=== PATIENT | female | born 1965 | race Caucasian/White ===

== ENCOUNTER 2016-11-07 14:35 | Emergency (ER) | payer BC ==
--- NOTE | 2016-11-07 16:22 | C.PDOC ---
History Of Present Illness 51 y/o female presents to the ED with complaints of pain to left shoulder x2 months. Pt reports taking OTC pain medications without relief. Pt saw orthopedist in [place]. Pt evaluated, sent for XR and referred to physical therapy. Pt states physical therapist told her since she has left axilla tenderness she may have inflammation and needs to be medically cleared in order to begin physical therapy. Pt insistent on having US performed. Denies fever, chills, weakness, numbness or any other complaints. Time Seen by Provider: 11/07/16 14:45 Chief Complaint (Nursing): Upper Extremity Problem/Injury History Per: Patient History/Exam Limitations: no limitations Onset/Duration Of Symptoms: Days Current Symptoms Are (Timing): Still Present Quality: "Pain" Severity: Mild Recent travel outside of the [place]: No Past Medical History Reviewed: Historical Data, Nursing Documentation, Vital Signs Vital Signs: Last Vital Signs Temp 98.2 F 11/07/16 18:05 Pulse 82 11/07/16 18:05 Resp 18 11/07/16 18:05 BP 120/72 11/07/16 18:05 Pulse Ox 98 11/07/16 18:05 - Medical History PMH: Gastritis, Chronic Pain - [facility] Procedures INFLUENZA VACCINATION (03/29/14) Family History: States: Unknown Family Hx - Social History Hx Tobacco Use: No Hx Alcohol Use: Yes Hx Substance Use: No - Immunization History Hx Tetanus Toxoid Vaccination: No Hx Influenza Vaccination: No Hx Pneumococcal Vaccination: No Review Of Systems Constitutional: Negative for: Fever, Chills Musculoskeletal: Positive for: Shoulder Pain (left shoulder pain) Neurological: Negative for: Weakness, Numbness Physical Exam - Physical Exam Appears: Non-toxic, No Acute Distress Skin: Warm, Dry, No Rash Head: Atraumatic, Normacephalic Cardiovascular: Rhythm Regular Respiratory: Normal Breath Sounds, No Rales, No Rhonchi, No Wheezing Extremity: Normal ROM, Tenderness (diffuse left shoulder and axilla tenderness) , No Deformity, Other (No erythema or swelling to left shoulder/axilla) Neurological/Psych: Oriented x3, Normal Speech, Normal Cognition, Normal Motor, Normal Sensation ED Course And Treatment O2 Sat by Pulse Oximetry: 99 (room air) Pulse Ox Interpretation: Normal - CT Scan/US axilla US Other Rad Studies (CT/US): Read By Radiologist, Radiology Report Reviewed CT/US Interpretation: Accession No. : [id number]. Patient Name / ID : PARVEZ CASTRO / [id number]. Exam Date : 11/07/2016 15:57:20 ( Approved ) . Study Comment : Sex / Age : F / 51Y. Creator : Bonnie Dickens MD. Dictator : Bonnie Dickens MD. Spot Welder Body Assembly : Dobie Man : Bonnie Dickens MD. Approver2 : Report Date : 11/07/2016 16:31:27. My Comment : . Nonvascular extremity ultrasound. Indication: Left axilla, pain, rule out abscess. Comparison: None available. Findings: Limited sonographic images in the region of interest were obtained. Within the left axilla, there is evidence of 2 lymph nodes measuring approximately 1.9 x 0.7 x 1.8 cm and 1.6 x 0.5 x 1.5 cm. Comparison images of the right axilla were obtained with 1.8 x 1.1 x 1.7 cm lymph node evident. No focal fluid collection or abscess identified. Impression: Limited provided images demonstrate evidence of 2 lymph nodes measuring approximately 1.9 x 0.7 x 1.8 cm and 1.6 x 0.5 x 1.5 cm in the left axilla. Comparison images of the right axilla were obtained with evidence of a 1.8 x 1.1 x 1.7 cm lymph node present. No focal fluid collection or abscess identified. If indicated, further evaluation may be considered with cross-sectional imaging. Progress Note: Plan: US Disposition - Disposition Disposition: HOME/ ROUTINE Disposition Time: 17:44 Condition: STABLE Additional Instructions: Follow up with PMD and Orthopedist, please get Mammogram. Return to ED if feel worse. Instructions: Lymphadenopathy (ED) - Clinical Impression Clinical Impression: Pain in left axilla - PA / BRAND REPRESENTATIVE / Resident Statement MD/DO has reviewed & agrees with the documentation as recorded. - Scribe Statement The provider has reviewed the documentation as recorded by the Светланаibjuana Riojas All medical record entries made by the Gissel were at my direction and personally dictated by me. I have reviewed the chart and agree that the record accurately reflects my personal performance of the history, physical exam, medical decision making, and the department course for this patient. I have also personally directed, reviewed, and agree with the discharge instructions and disposition.
--- NOTE | 2016-11-07 16:33 | US ---
Nonvascular extremity ultrasound Indication: Left axilla, pain, rule out abscess Comparison: None available Findings: Limited sonographic images in the region of interest were obtained. Within the left axilla, there is evidence of 2 lymph nodes measuring approximately 1.9 x 0.7 x 1.8 cm and 1.6 x 0.5 x 1.5 cm. Comparison images of the right axilla were obtained with 1.8 x 1.1 x 1.7 cm lymph node evident. No focal fluid collection or abscess identified. Impression: Limited provided images demonstrate evidence of 2 lymph nodes measuring approximately 1.9 x 0.7 x 1.8 cm and 1.6 x 0.5 x 1.5 cm in the left axilla. Comparison images of the right axilla were obtained with evidence of a 1.8 x 1.1 x 1.7 cm lymph node present. No focal fluid collection or abscess identified. If indicated, further evaluation may be considered with cross-sectional imaging.
[2016-11-07 18:06] VITALS: BP 120/72; PULSE 82; RESP 18; TEMP 98.2
[2016-11-07 22:05] VITALS: O2SAT 99
== END 2016-11-07 18:11 | disposition home or self-care (01) ==
LOC: C.ER 14:35
DX: M79.622 Pain in left upper arm (principal)

== ENCOUNTER 2018-07-09 02:27 | Emergency (ER) | payer BC ==
[2018-07-09 03:08] LABS: SQUAMOUS EPITHIAL 3 /hpf (0-5); URINE BILIRUBIN NEGATIVE (NEGATIVE); URINE BLOOD NEGATIVE (NEGATIVE); URINE CLARITY Clear (Clear); URINE COLOR Yellow (YELLOW); URINE GLUCOSE (UA) NORMAL (Normal); URINE LEUKOCYTE ESTERASE 1+ Leu/uL (Negative); URINE PROTEIN NEGATIVE (NEGATIVE); URINE UROBILINOGEN NORMAL mg/dL (0.2-1.0)
[2018-07-09 03:31] LABS: BASO % 0.4 % (0.0-2.0); EOS # 0.1 K/uL (0.0-0.7); EOS % 2.1 % (0.0-4.0); HEMOGLOBIN 11.9 g/dL (11.0-16.0); LYMPH # 2.5 K/uL (1.0-4.3); LYMPH % 45.6 % (20.0-40.0); MEAN CELL VOLUME 83.7 fL (81.0-99.0); MEAN CORPUSCULAR HGB CONC 32.3 g/dL (33.0-37.0); MONO # 0.3 K/uL (0.0-0.8); MONO % 5.7 % (0.0-10.0); NEUT # 2.5 K/uL (1.8-7.0); NEUT % 46.2 % (50.0-75.0); NRBC % 0.1 % (0.0-2.0); RBC 4.41 Mil/uL (3.80-5.20); RED CELL DISTRIBUTION WIDTH 14.3 % (11.5-14.5); WHITE BLOOD COUNT 5.5 K/uL (4.8-10.8)
[2018-07-09 03:43] LABS: ALB/GLOB RATIO 1.2 (1.0-2.1); ALBUMIN 4.1 g/dL (3.5-5.0); ALT/SGPT 26 U/L (9-52); AST/SGOT 35 U/L (14-36); BLOOD UREA NITROGEN 15 mg/dL (7-17); CALCIUM 9.4 mg/dl (8.6-10.4); GFR NON-AFRICAN AMERICAN > 60; LIPASE 54 U/L (23-300)
--- NOTE | 2018-07-09 05:22 | C.PDOC ---
History Of Present Illness 53 year old female with intermittent right sided suprapubic pressure/sharp/stabbing pain for the past 2 weeks. Patient just came back from [place], she reports feeling gassy and bloated but otherwise no GI symptoms, fever, or chills. Patient is post menopausal, has Hx of ovarian cyst but states it is not as painful as last time. Time Seen by Provider: 07/09/18 03:03 Chief Complaint (Nursing): Abdominal Pain History Per: Patient History/Exam Limitations: no limitations Onset/Duration Of Symptoms: Days Current Symptoms Are (Timing): Still Present Quality Of Discomfort: Sharp, Pressure, Stabbing Associated Symptoms: denies: Fever, Chills, Other (GI symptoms) Exacerbating Factors: None Alleviating Factors: None Recent travel outside of the [place]: No Past Medical History Reviewed: Historical Data, Nursing Documentation, Vital Signs Vital Signs: Last Vital Signs Temp 97.5 F L 07/09/18 02:36 Pulse 92 H 07/09/18 02:36 Resp 16 07/09/18 02:36 BP 138/88 07/09/18 02:36 Pulse Ox 97 07/09/18 02:36 - Medical History PMH: Fibromyalgia, Gastritis, Chronic Pain Denies: Chronic Kidney Disease - [facility] Procedures INFLUENZA VACCINATION (03/29/14) Family History: States: Unknown Family Hx - Social History Hx Tobacco Use: No Hx Alcohol Use: Yes Hx Substance Use: No - Immunization History Hx Tetanus Toxoid Vaccination: No Hx Influenza Vaccination: No Hx Pneumococcal Vaccination: No Review Of Systems Constitutional: Negative for: Fever, Chills Eyes: Negative for: Pain, Redness ENT: Negative for: Mouth Swelling Cardiovascular: Negative for: Chest Pain, Palpitations Respiratory: Negative for: Cough, Shortness of Breath Gastrointestinal: Positive for: Abdominal Pain. Negative for: Nausea, Vomiting, Diarrhea Genitourinary: Negative for: Dysuria, Hematuria Musculoskeletal: Negative for: Back Pain Skin: Negative for: Rash Neurological: Negative for: Weakness, Numbness, Dizziness Physical Exam - Physical Exam Appears: Well, Non-toxic, No Acute Distress Skin: Normal Color, Warm, No Rash Head: Atraumatic, Normacephalic Eye(s): bilateral: Normal Inspection, PERRL, EOMI Oral Mucosa: Moist Neck: Normal ROM, Supple Chest: Symmetrical, No Tenderness Respiratory: No Accessory Muscle Use, Other (Normal inspiratory effort) Gastrointestinal/Abdominal: Soft, Tenderness (Mild right suprapubic), No Guarding, No Rebound Back: No CVA Tenderness Extremity: Normal ROM (x4) Neurological/Psych: Oriented x3, Normal Speech, Normal Cranial Nerves (Grossly intact) ED Course And Treatment - Laboratory Results Result Diagrams: 07/09/18 03:25 07/09/18 03:25 Lab Results: Total Bilirubin 0.2 mg/dL (0.2-1.3) 07/09/18 03:25 AST 35 U/L (14-36) 07/09/18 03:25 ALT 26 U/L (9-52) 07/09/18 03:25 Alkaline Phosphatase 91 U/L (38-126) 07/09/18 03:25 Total Protein 7.4 g/dL (6.3-8.3) 07/09/18 03:25 Albumin 4.1 g/dL (3.5-5.0) 07/09/18 03:25 Globulin 3.4 gm/dL (2.2-3.9) 07/09/18 03:25 Albumin/Globulin Ratio 1.2 (1.0-2.1) 07/09/18 03:25 Lipase 54 U/L (23-300) 07/09/18 03:25 Urine Color Yellow (YELLOW) 07/09/18 02:58 Urine Clarity Clear (Clear) 07/09/18 02:58 Urine pH 6.0 (5.0-8.0) 07/09/18 02:58 Ur Specific [place] 1.010 (1.003-1.030) 07/09/18 02:58 Urine Protein Negative mg/dL (NEGATIVE) 07/09/18 02:58 Urine Glucose (UA) Normal mg/dL (Normal) 07/09/18 02:58 Urine Ketones Negative mg/dL (NEGATIVE) 07/09/18 02:58 Urine Blood Negative (NEGATIVE) 07/09/18 02:58 Urine Nitrate Negative (NEGATIVE) 07/09/18 02:58 Urine Bilirubin Negative (NEGATIVE) 07/09/18 02:58 Urine Urobilinogen Normal mg/dL (0.2-1.0) 07/09/18 02:58 Ur Leukocyte Esterase 1+ Angelica/uL (Negative) H 07/09/18 02:58 Urine WBC (Auto) 5 /hpf (0-5) 07/09/18 02:58 Urine RBC (Auto) < 1 /hpf (0-3) 07/09/18 02:58 Ur Squamous Epith Cells 3 /hpf (0-5) 07/09/18 02:58 O2 Sat by Pulse Oximetry: 97 (Room air) Pulse Ox Interpretation: Normal Medical Decision Making Medical Decision Making: Patient does not have GI symptoms, has good appetite, no vomiting or diarrhea, does not seem to be in much pain at this time, labs show no acute abnormalities, UA shows trace leukoesterase, plan is antibiotic for UTI and advised to fu with BABY COUNSELOR or US or return if symptoms persist. Disposition Counseled Patient/Family Regarding: Studies Performed, Diagnosis, Need For Followup, Rx Given - Disposition Disposition: HOME/ ROUTINE Disposition Time: 05:36 Condition: STABLE Prescriptions: Nitrofurantoin Macrocrystals [Macrobid] 100 mg PO BID 7 Days cap Instructions: Urinary Tract Infection, Adult (DC), Ovarian Cyst (DC) Forms: [employer] (Turkish), General Discharge Instructions - Clinical Impression Clinical Impression: Ovarian cyst, UTI (urinary tract infection) - PA / ASSOCIATE MEDICAL DIRECTOR / Resident Statement MD/DO has reviewed & agrees with the documentation as recorded. - Scribe Statement The provider has reviewed the documentation as recorded by the Scribe Domingo Chandler All medical record entries made by the Scribe were at my direction and persona lly dictated by me. I have reviewed the chart and agree that the record accurately reflects my personal performance of the history, physical exam, medical decision making, and the department course for this patient. I have also personally directed, reviewed, and agree with the discharge instructions and disposition.
[2018-07-09 05:58] VITALS: BP 141/91; PULSE 79; RESP 20; TEMP 98.2
[2018-07-09 06:13] VITALS: O2SAT 97
== END 2018-07-09 06:00 | disposition home or self-care (01) ==
LOC: C.ER 02:27
DX: N83.209 Unspecified ovarian cyst, unspecified side (principal); N39.0 Urinary tract infection, site not specified